=== PATIENT | male | born 1970 | race Caucasian/White ===

== ENCOUNTER 2016-08-23 17:02 | Inpatient (IN) | payer OTHER ==
[~2016-08-23] VITALS: Ht 185.4 cm; Wt 49.3 kg
[~2016-08-23 17:02] MED LIST: CARBAMAZEPINE400 MG PO; GAMUNEX-C10 GM/100 IV; LIBRIUM25 MG PO; MIRTAZAPINE15 MG PO; TEGRETOL-XR,CA400 MG; TYLENOL REGULA325 MG PO; VITAMIN B-12500 MC5 SL; VITAMIN B-6100 MG PO
[2016-08-23 18:24] LABS: HEMATOCRIT 24.3 % (38.0-50.0); MCH 33.7 PG (29.0-34.0); MCHC 36.6 G/DL (30.0-36.0); MEAN PLAT.VOLUME 8.1 uM^3 (9.0-12.4); PLATELET COUNT 515 K/uL (156-360); RBC DIS.WIDTH-CV 16.8 % (11.8-14.6); RBC DIS.WIDTH-SD 53.5 % (39-53); RED BLOOD COUNT 2.64 M/uL (4.00-5.50)
[2016-08-23 18:25] LABS: INTER. NORMALIZED RATIO 0.9; PROTHROMBIN TIME 9.6 (9.2-11.2); PTT 23.8 (25-32); WHITE BLOOD COUNT 1.3 K/uL (4.1-10.2)
[2016-08-23 18:27] LABS: CHLORIDE 84 mEq/L (99-109); POTASSIUM 3.5 mEq/L (3.7-5.4); SODIUM 121 mEq/L (136-147)
[2016-08-23 18:30] LABS: GLUCOSE 178 mg/dL (70-99)
[2016-08-23 18:31] LABS: ANION GAP 15 MEQ/L (2-14)
[2016-08-23 18:32] LABS: TOTAL BILIRUBIN 1.5 mg/dL (0.0-1.0)
[2016-08-23 18:33] LABS: ALKALINE PHOSPHATASE 291 IU/L (3-129); GFR ESTIMATE (CALCULATED) 19 mL/min/
[2016-08-23 18:35] LABS: UREA NITROGEN (BUN) 50 mg/dL (9-23)
[2016-08-23] MEDS ORDERED: LEXAPRO10 MG PO (18:53)
[2016-08-23] MEDS ORDERED: ONE-A-DAY ESSE1 EAC1 PO (18:53)
[2016-08-23] MEDS ORDERED: IRON325 M1 PO (18:54)
[2016-08-23] MEDS ORDERED: AMLODIPINE BESYL5 MG PO (18:54)
[2016-08-23] MEDS ORDERED: METOPROLOL PO (18:54)
[2016-08-23] MEDS ORDERED: VALCYTE450 MG PO (18:54)
[2016-08-23] MEDS ORDERED: KEPPRA500 MG PO (18:54)
[2016-08-23] MEDS ORDERED: PREDNISONE5 MG PO (18:54)
[2016-08-23] MEDS ORDERED: BACTRIM,SEPT1 TABLET PO (18:55)
[2016-08-23] MEDS ORDERED: TACROLIMUS ANHYD1 MG PO (18:55)
[2016-08-23] MEDS ORDERED: ZOFRAN4 MG PO (18:55)
[2016-08-23] MEDS ORDERED: MYCOPHENOLATE250 MG PO (18:56)
[2016-08-23] MEDS ORDERED: MAGNESIUM400 M1 PO (18:56)
[2016-08-23] MEDS ORDERED: PROTONIX40 MG PO (18:56)
[2016-08-23] MEDS ORDERED: LITE COAT ASPI325 M1 PO (18:56)
[2016-08-23 20:25] LABS: ANISOCYTOSIS 2+; PLAT.SUFFICIENCY ADEQUATE; SMUDGE CELLS 0
[2016-08-23 20:45] VITALS: BP 120/65
[2016-08-23 21:32] VITALS: BP 120/65
[2016-08-23 22:38] VITALS: BP 122/55
[2016-08-24 03:03] VITALS: BP 124/71
[2016-08-24 08:01] VITALS: BP 107/62
[2016-08-24 09:59] LABS: ANION GAP 14 MEQ/L (2-14); MAGNESIUM 1.9 mg/dl (1.3-2.7); POTASSIUM 3.1 MEQ/L (3.7-5.4); SAMPLE HEMOLYSIS CHECK 0; SAMPLE ICTERIC CHECK 0; SAMPLE LIPEMIA CHECK 0; UREA NITROGEN (BUN) 38 mg/dL (9-23)
[2016-08-24 10:00] LABS: CHLORIDE 95 MEQ/L (99-109); GFR ESTIMATE (CALCULATED) 31 mL/min/; GLUCOSE 115 mg/dL (70-99); SODIUM 133 MEQ/L (136-147)
[2016-08-24 12:30] VITALS: BP 135/59
[2016-08-24 16:45] LABS: ADD MIUA? NO; BILIRUBIN NEGATIVE; BLOOD NEGATIVE; COLOR YELLOW ((YELLOW)); GLUCOSE (STRIP) 250; KETONES NEGATIVE; LEUKOCYTES NEGATIVE; NITRITE NEGATIVE; PH, URINE 5.5 (5-8); PROTEIN (STRIP) NEGATIVE; SPECIFIC GRAVITY 1.007 (1.000-1.030); UROBILINOGEN 0.2 MG/DL (0.2-1.0)
[2016-08-24 16:47] VITALS: BP 140/71
[2016-08-24 16:48] LABS: PROBE CHECK ND; SPECIMEN PROCESSING CONTROL ND
[2016-08-24 17:11] LABS: INTERNAL CONTROL VALID? YES
[2016-08-24 18:25] LABS: ANION GAP 10 MEQ/L (2-14); CHLORIDE 99 MEQ/L (99-109); GFR ESTIMATE (CALCULATED) 36 mL/min/; SAMPLE HEMOLYSIS CHECK 0; SAMPLE ICTERIC CHECK 0; SAMPLE LIPEMIA CHECK 0; SODIUM 130 MEQ/L (136-147); UREA NITROGEN (BUN) 35 mg/dL (9-23)
[2016-08-24 19:15] VITALS: BP 100/62
[2016-08-24 19:22] LABS: GLUCOSE 181 mg/dL (70-99); POTASSIUM 4.5 MEQ/L (3.7-5.4)
[2016-08-24 22:49] VITALS: BP 100/65
[2016-08-25] VITALS (11 sets, daily range): BP systolic 117–163; BP diastolic 71–84
[2016-08-25 07:17] LABS: ANION GAP 9 MEQ/L (2-14); CHLORIDE 101 MEQ/L (99-109); GFR ESTIMATE (CALCULATED) 43 mL/min/; GLUCOSE 91 mg/dL (70-99); POTASSIUM 3.9 MEQ/L (3.7-5.4); SAMPLE HEMOLYSIS CHECK 0; SAMPLE ICTERIC CHECK 0; SAMPLE LIPEMIA CHECK 0; SODIUM 129 MEQ/L (136-147); UREA NITROGEN (BUN) 29 mg/dL (9-23)
[2016-08-25 09:59] LABS: HEMATOCRIT 19.6 % (38.0-50.0); MCHC 35.2 G/DL (30.0-36.0); MEAN PLAT.VOLUME 8.7 uM^3 (9.0-12.4); PLATELET COUNT 363 K/uL (156-360); RBC DIS.WIDTH-CV 17.8 % (11.8-14.6); RBC DIS.WIDTH-SD 63.5 % (39-53)
[2016-08-25 10:00] LABS: MCV 96.6 FL (86-99); RED BLOOD COUNT 2.03 M/uL (4.00-5.50); WHITE BLOOD COUNT 1.1 K/uL (4.1-10.2)
[2016-08-26 07:07] LABS: ANION GAP 8 MEQ/L (2-14); CHLORIDE 102 MEQ/L (99-109); GFR ESTIMATE (CALCULATED) 49 mL/min/; GLUCOSE 74 mg/dL (70-99); SAMPLE HEMOLYSIS CHECK 0; SAMPLE ICTERIC CHECK 0; SAMPLE LIPEMIA CHECK 0; SODIUM 131 MEQ/L (136-147); UREA NITROGEN (BUN) 20 mg/dL (9-23)
[2016-08-26 07:08] LABS: ALKALINE PHOSPHATASE 206 IU/L (3-129); ANION GAP 9 MEQ/L (2-14); CHLORIDE 102 MEQ/L (99-109); GFR ESTIMATE (CALCULATED) 53 mL/min/; GLUCOSE 75 mg/dL (70-99); POTASSIUM 4.1 MEQ/L (3.7-5.4); SAMPLE HEMOLYSIS CHECK 0; SAMPLE ICTERIC CHECK 0; SAMPLE LIPEMIA CHECK 0; SODIUM 132 MEQ/L (136-147); TOTAL BILIRUBIN 1.3 MG/DL (0.0-1.0); UREA NITROGEN (BUN) 21 mg/dL (9-23)
[2016-08-26 07:47] LABS: HEMATOCRIT 30.3 % (38.0-50.0); MCH 32.4 PG (29.0-34.0); PLATELET COUNT 333 K/uL (156-360); RBC DIS.WIDTH-CV 18.7 % (11.8-14.6); RBC DIS.WIDTH-SD 62.8 % (39-53)
[2016-08-26 07:55] VITALS: BP 128/88
[2016-08-26 07:56] LABS: MCV 92.1 FL (86-99); RED BLOOD COUNT 3.27 M/uL (4.00-5.50); WHITE BLOOD COUNT 1.3 K/uL (4.1-10.2)
[2016-08-26 08:27] LABS: ABS NEUTROPHIL COUNT 0.37; ANISOCYTOSIS OCC; BURR CELLS OCC; EOSINOPHIL (%) 3.1 % (0-5); EOSINOPHIL ABS CT 0.09; IMMATURE GRANULOCYTE (%) 8.7 % (0.0-0.7); IMMATURE GRANULOCYTE COUNT 0.1 K/uL; LYMPHOCYTE COUNT 0.5 K/uL (1.0-2.8); MONOCYTE (%) 9.4 % (3-12); MONOCYTE COUNT 0.1 K/uL (0-0.8); NEUTROPHIL (%) 35.5 % (45-76); NEUTROPHIL COUNT 0.5 K/uL (1.8-6.4); PLAT.SUFFICIENCY ADEQUATE; USER ID CL
[2016-08-26 17:00] VITALS: BP 117/69
[2016-08-26 23:55] VITALS: BP 131/84
[2016-08-27 08:53] LABS: MCH 32.4 PG (29.0-34.0); MCHC 34.8 G/DL (30.0-36.0); MCV 92.6 FL (86-99); MEAN PLAT.VOLUME 8.8 uM^3 (9.0-12.4); PLATELET COUNT 308 K/uL (156-360); RBC DIS.WIDTH-CV 18.6 % (11.8-14.6); RBC DIS.WIDTH-SD 62.8 % (39-53); RED BLOOD COUNT 3.33 M/uL (4.00-5.50)
[2016-08-27 08:54] LABS: WHITE BLOOD COUNT 1.1 K/uL (4.1-10.2)
[2016-08-27 08:55] LABS: DELETE MACHINE DIFF? YES
[2016-08-27 08:58] VITALS: BP 122/77
[2016-08-27 09:05] LABS: ANION GAP 9 MEQ/L (2-14); CHLORIDE 103 MEQ/L (99-109); GFR ESTIMATE (CALCULATED) 53 mL/min/; POTASSIUM 3.9 MEQ/L (3.7-5.4); SAMPLE HEMOLYSIS CHECK 0; SAMPLE ICTERIC CHECK 0; SAMPLE LIPEMIA CHECK 0; SODIUM 130 MEQ/L (136-147); UREA NITROGEN (BUN) 17 mg/dL (9-23)
[2016-08-27 09:06] LABS: GLUCOSE 97 mg/dL (70-99)
[2016-08-27 09:13] LABS: ABS NEUTROPHIL COUNT 0.47; ANISOCYTOSIS 1+; EOSINOPHIL (%) 3.5 % (0-5); EOSINOPHIL ABS CT 0.02; IMMATURE GRANULOCYTE (%) 9.6 % (0.0-0.7); IMMATURE GRANULOCYTE COUNT 0.1 K/uL; LYMPHOCYTE COUNT 0.5 K/uL (1.0-2.8); MONOCYTE (%) 6.1 % (3-12); MONOCYTE COUNT 0.1 K/uL (0-0.8); NEUTROPHIL COUNT 0.4 K/uL (1.8-6.4); OVALOCYTES OCC; PLAT.SUFFICIENCY ADEQUATE; POLYCHROMASIA OCC; USER ID SDF
[2016-08-27 17:27] VITALS: BP 114/65
[2016-08-27 23:17] VITALS: BP 131/81
[2016-08-28 07:20] LABS: ALKALINE PHOSPHATASE 163 IU/L (3-129); ANION GAP 8 MEQ/L (2-14); CHLORIDE 104 MEQ/L (99-109); GFR ESTIMATE (CALCULATED) 53 mL/min/; GLUCOSE 90 mg/dL (70-99); SAMPLE HEMOLYSIS CHECK 0; SAMPLE ICTERIC CHECK 0; SAMPLE LIPEMIA CHECK 0; SODIUM 131 MEQ/L (136-147); TOTAL BILIRUBIN 1.2 MG/DL (0.0-1.0); UREA NITROGEN (BUN) 15 mg/dL (9-23)
[2016-08-28 07:21] LABS: POTASSIUM 4.9 MEQ/L (3.7-5.4)
[2016-08-28 07:49] VITALS: BP 135/78
[2016-08-28 07:50] LABS: EOSINOPHIL (%) 1.9 % (0-5); HEMATOCRIT 29.9 % (38.0-50.0); LYMPHOCYTE COUNT 0.5 K/uL (1.0-2.8); MCH 32.2 PG (29.0-34.0); MCHC 34.4 G/DL (30.0-36.0); MCV 93.4 FL (86-99); MEAN PLAT.VOLUME 8.9 uM^3 (9.0-12.4); MONOCYTE (%) 8.6 % (3-12); MONOCYTE COUNT 0.1 K/uL (0-0.8); NEUTROPHIL (%) 39.9 % (45-76); NEUTROPHIL COUNT 0.4 K/uL (1.8-6.4); PLATELET COUNT 307 K/uL (156-360); RBC DIS.WIDTH-CV 18.3 % (11.8-14.6)
[2016-08-28 07:53] LABS: WHITE BLOOD COUNT 1.1 K/uL (4.1-10.2)
[2016-08-28 08:43] LABS: HEMATOLOGY COMMENT 1 SMEAR COMPATIBLE; USER ID STC
[2016-08-28] MEDS ORDERED: VALGANCICLOVIR450 MG PO (12:07)
[2016-08-28] MEDS ORDERED: AZITHROMYCIN500 M1 PO (12:07)
[2016-08-28] MEDS ORDERED: ALINIA500 MG PO (12:07)
[2016-08-28 15:11] VITALS: BP 138/81
[2016-08-28 23:04] VITALS: BP 112/72
[2016-08-29 08:27] VITALS: BP 114/74
[2016-08-29 10:02] LABS: ANION GAP 11 MEQ/L (2-14); CHLORIDE 104 MEQ/L (99-109); GFR ESTIMATE (CALCULATED) 58 mL/min/; GLUCOSE 90 mg/dL (70-99); SAMPLE HEMOLYSIS CHECK 0; SAMPLE ICTERIC CHECK 0; SAMPLE LIPEMIA CHECK 0; SODIUM 132 MEQ/L (136-147); UREA NITROGEN (BUN) 11 mg/dL (9-23)
[2016-08-29 10:20] LABS: POTASSIUM 3.6 MEQ/L (3.7-5.4)
[2016-08-29] MEDS ORDERED: VALGANCICLOVIR450 MG PO (13:00)
[2016-08-29] MEDS ORDERED: AZITHROMYCIN500 M1 PO (13:00)
== END 2016-08-29 14:26 | disposition home health service (06) | DRG 683 ==
LOC: EME 17:02 → EDOF 20:00 → 5EAST 20:00
PROVIDERS: Emergency Medicine; Family Medicine; Internal Medicine; Internal Medicine Gastroenterology
PROC: 30233N1 Transfusion of Nonautologous Red Blood Cells into Peripheral Vein, Percutaneous Approach (ICD-10-PCS; principal; 2016-08-25)
DX: N17.9 Acute kidney failure, unspecified (principal); A07.2 Cryptosporidiosis; E87.1 Hypo-osmolality and hyponatremia; Z94.4 Liver transplant status; G61.81 Chronic inflammatory demyelinating polyneuritis; E86.0 Dehydration; D70.9 Neutropenia, unspecified; E87.6 Hypokalemia; R19.7 Diarrhea, unspecified; D64.9 Anemia, unspecified; G40.909 Epilepsy, unspecified, not intractable, without status epilepticus; F41.9 Anxiety disorder, unspecified; Z88.5 Allergy status to narcotic agent; Z79.82 Long term (current) use of aspirin
CPT/HCPCS: 76770; 80048; 80048 91; 80053; 80069; 80197 90; 81003; 82436; 83630; 83735; 83935; 84100; 84133; 84300; 84540; 85007; 85025; 85027; 85610; 85730; 86850; 86900; 86901; 86920; 87177; 87206; 87207 90; 87329; 87493; 87497 90; 87506; 99281; 99285; J3480; J7030; J7120; J7507; J7512; J7517; P9016

== ENCOUNTER 2016-11-01 13:15 | Inpatient (IN) | payer OTHER ==
[~2016-11-01] VITALS: Ht 188 cm; Wt 48.9 kg
[~2016-11-01 13:15] MED LIST changes: +ALINIA500 MG PO; +AMLODIPINE BESYL5 MG PO; +AZITHROMYCIN500 M1 PO; +BACTRIM,SEPT1 TABLET PO; +IRON325 M1 PO; +KEPPRA500 MG PO; +LEXAPRO10 MG PO; +LITE COAT ASPI325 M1 PO; +MAGNESIUM400 M1 PO; +METOPROLOL PO; +MYCOPHENOLATE250 MG PO; +ONE-A-DAY ESSE1 EAC1 PO; +PREDNISONE5 MG PO; +PROTONIX40 MG PO; +TACROLIMUS ANHYD1 MG PO; +VALCYTE450 MG PO; +VALGANCICLOVIR450 MG PO; +ZOFRAN4 MG PO
[2016-11-01] MEDS ORDERED: SLOW-MAG,MAG DE64 MG PO (18:58)
[2016-11-01] MEDS ORDERED: TACROLIMUS ANHYD1 MG PO ×2 (19:00→19:01)
[2016-11-01] MEDS ORDERED: CELLCEPT250 MG PO (19:02)
[2016-11-01] MEDS ORDERED: FLUCONAZOLE100 MG PO (19:04)
[2016-11-01] MEDS ORDERED: CHEWABLE-VITE1 EACH PO (19:05)
[2016-11-02 00:14] VITALS: BP 172/80
[2016-11-02 07:01] LABS: MCHC 32.9 G/DL (30.0-36.0); MCV 97.2 FL (86-99); MEAN PLAT.VOLUME 9.2 uM^3 (9.0-12.4); PLATELET COUNT 308 K/uL (156-360); RBC DIS.WIDTH-SD 53.6 % (39-53)
[2016-11-02 07:02] LABS: ANION GAP 10 MEQ/L (2-14); CHLORIDE 109 MEQ/L (99-109); POTASSIUM 3.2 MEQ/L (3.7-5.4); SAMPLE HEMOLYSIS CHECK 0; SAMPLE ICTERIC CHECK 0; SAMPLE LIPEMIA CHECK 0; SODIUM 135 MEQ/L (136-147); UREA NITROGEN (BUN) 18 mg/dL (9-23)
[2016-11-02 07:03] LABS: GFR ESTIMATE (CALCULATED) 25 mL/min/; GLUCOSE 92 mg/dL (70-99)
[2016-11-02 07:07] LABS: RED BLOOD COUNT 2.47 M/uL (4.00-5.50); WHITE BLOOD COUNT 6.9 K/uL (4.1-10.2)
[2016-11-02 07:27] VITALS: BP 165/77
[2016-11-02 09:11] LABS: ABS NEUTROPHIL COUNT 3.7; ANISOCYTOSIS 1+; BAND NEUTROPHILS 16.2 % (0-8.0); BURR CELLS 2+; EOSINOPHIL ABS CT 1.2; EOSINOPHILS 17.1 % (0-5.0); INSTRUMENT ABS NEUTROPHIL CT 3.6 K/uL; LYMPHOCYTES 14.4 % (15.0-45.0); MACROCYTES 1+; METAMYELOCYTES 4.5 %; MYELOCYTES 3.6 %; PLAT.SUFFICIENCY ADEQUATE; POIKILOCYTOSIS 2+
[2016-11-02 16:15] VITALS: BP 117/67
[2016-11-02 23:09] VITALS: BP 133/83
[2016-11-03] VITALS (7 sets, daily range): BP systolic 116–170; BP diastolic 72–88
[2016-11-03 06:31] LABS: HEMATOCRIT 21.7 % (38.0-50.0); MCH 31.7 PG (29.0-34.0); MCHC 32.3 G/DL (30.0-36.0); MCV 98.2 FL (86-99); MEAN PLAT.VOLUME 9.2 uM^3 (9.0-12.4); PLATELET COUNT 270 K/uL (156-360); RBC DIS.WIDTH-CV 15.3 % (11.8-14.6); RBC DIS.WIDTH-SD 55.8 % (39-53); RED BLOOD COUNT 2.21 M/uL (4.00-5.50); WHITE BLOOD COUNT 6.3 K/uL (4.1-10.2)
[2016-11-03 07:37] LABS: ANION GAP 10 MEQ/L (2-14); CHLORIDE 112 MEQ/L (99-109); GLUCOSE 95 mg/dL (70-99); POTASSIUM 2.8 MEQ/L (3.7-5.4); SAMPLE HEMOLYSIS CHECK 0; SAMPLE ICTERIC CHECK 0; SAMPLE LIPEMIA CHECK 0; SODIUM 135 MEQ/L (136-147); UREA NITROGEN (BUN) 11 mg/dL (9-23)
[2016-11-03 07:38] LABS: GFR ESTIMATE (CALCULATED) 31 mL/min/
[2016-11-03 08:07] LABS: ABS NEUTROPHIL COUNT 3.3; ATYPICAL LYMPHOCYTE 2.7 %; BAND NEUTROPHILS 8.2 % (0-8.0); BASOPHILS 1.8 %; BURR CELLS 1+; EOSINOPHIL ABS CT 1.5; EOSINOPHILS 24.6 % (0-5.0); INSTRUMENT ABS NEUTROPHIL CT 3.1 K/uL; LYMPHOCYTES 4.6 % (15.0-45.0); METAMYELOCYTES 2.7 %; MYELOCYTES 0.9 %; PLAT.SUFFICIENCY ADEQUATE; POIKILOCYTOSIS 2+; SEG.NEUTROPHILS 44.5 % (46.0-76.0); SMUDGE CELLS 0.9
[2016-11-03 18:12] LABS: ANION GAP 10 MEQ/L (2-14); CHLORIDE 112 MEQ/L (99-109); SAMPLE HEMOLYSIS CHECK 0; SAMPLE ICTERIC CHECK 0; SAMPLE LIPEMIA CHECK 0; SODIUM 139 MEQ/L (136-147)
[2016-11-03 18:56] LABS: GFR ESTIMATE (CALCULATED) 34 mL/min/; UREA NITROGEN (BUN) 9 mg/dL (9-23)
[2016-11-03 18:57] LABS: GLUCOSE 120 mg/dL (70-99)
[2016-11-04 00:46] VITALS: BP 126/68
[2016-11-04 01:13] VITALS: BP 164/79
[2016-11-04 06:19] LABS: CARBON DIOXIDE (BICARBONATE) 20.2 MEQ/L (20-31)
[2016-11-04 06:21] LABS: HEMATOCRIT 27.5 % (38.0-50.0); MCH 30.6 PG (29.0-34.0); MCHC 33.8 G/DL (30.0-36.0); RBC DIS.WIDTH-CV 16.7 % (11.8-14.6); RBC DIS.WIDTH-SD 55.7 % (39-53); WHITE BLOOD COUNT 5.8 K/uL (4.1-10.2)
[2016-11-04 06:36] LABS: ANION GAP 10 MEQ/L (2-14); CHLORIDE 107 MEQ/L (99-109); GFR ESTIMATE (CALCULATED) 33 mL/min/; GLUCOSE 97 mg/dL (70-99); SAMPLE HEMOLYSIS CHECK 0; SAMPLE ICTERIC CHECK 0; SAMPLE LIPEMIA CHECK 0; SODIUM 136 MEQ/L (136-147); UREA NITROGEN (BUN) 8 mg/dL (9-23)
[2016-11-04 06:38] LABS: MCV 90.5 FL (86-99); POTASSIUM 2.4 MEQ/L (3.7-5.4); RED BLOOD COUNT 3.04 M/uL (4.00-5.50)
[2016-11-04 08:00] LABS: ANISOCYTOSIS 1+; EOSINOPHIL ABS CT 1.2; INSTRUMENT ABS NEUTROPHIL CT 2.7 K/uL; MACROCYTES 1+; OVALOCYTES 1+; PLAT.SUFFICIENCY ADEQUATE; PLATELET COUNT 224 K/uL (156-360)
[2016-11-04 08:50] VITALS: BP 116/66
[2016-11-04 17:09] LABS: ANION GAP 9 MEQ/L (2-14); CHLORIDE 106 MEQ/L (99-109); GFR ESTIMATE (CALCULATED) 41 mL/min/; GLUCOSE 132 mg/dL (70-99); SAMPLE HEMOLYSIS CHECK 0; SAMPLE ICTERIC CHECK 0; SAMPLE LIPEMIA CHECK 0; SODIUM 135 MEQ/L (136-147); UREA NITROGEN (BUN) 7 mg/dL (9-23)
[2016-11-04 17:11] LABS: MAGNESIUM 1.6 mg/dl (1.3-2.7)
[2016-11-04] MEDS ORDERED: NABI650T PO (19:11)
[2016-11-04] MEDS ORDERED: K-DUR20 MEQ PO (19:12)
[2016-11-07 15:37] LABS: Cytomegalovirus IgG Antibody+ <0.60 U/mL (<0.60); Cytomegalovirus IgM Antibody+ <30.00 AU/mL (<30.00)
== END 2016-11-04 20:10 | disposition home or self-care (01) | DRG 683 ==
LOC: EME 13:15 → EDOF 18:45 → 5EAST 18:45
PROVIDERS: Family Medicine; Internal Medicine; Internal Medicine Nephrology
PROC: 30233N1 Transfusion of Nonautologous Red Blood Cells into Peripheral Vein, Percutaneous Approach (ICD-10-PCS; principal; 2016-11-03)
DX: N17.9 Acute kidney failure, unspecified (principal); E87.2 Acidosis; Z94.4 Liver transplant status; E86.0 Dehydration; E87.6 Hypokalemia; R19.7 Diarrhea, unspecified; G40.909 Epilepsy, unspecified, not intractable, without status epilepticus; E11.22 Type 2 diabetes mellitus with diabetic chronic kidney disease; G62.9 Polyneuropathy, unspecified; D64.9 Anemia, unspecified; I12.9 Hypertensive chronic kidney disease with stage 1 through stage 4 chronic kidney disease, or unspecified chronic kidney disease; N18.3 Chronic kidney disease, stage 3 (moderate); F41.9 Anxiety disorder, unspecified
CPT/HCPCS: 36415; 74176; 80048 91; 80053; 80069; 80197 90; 82803; 83735; 84100; 85025; 85025 91; 86644 90; 86645 90; 86850; 86900; 86901; 86920; 87206; 87493; 99281; 99285; J3475; J7030; J7050; J7070; J7120; J7507; J7512; J7517; P9016

== ENCOUNTER 2017-01-20 10:40 | Emergency (ER) | payer OTHER ==
[~2017-01-20] VITALS: Ht 185.4 cm; Wt 46.9 kg
[~2017-01-20 10:40] MED LIST changes: +CELLCEPT250 MG PO; +CHEWABLE-VITE1 EACH PO; +FLUCONAZOLE100 MG PO; +K-DUR20 MEQ PO; +NABI650T PO; +SLOW-MAG,MAG DE64 MG PO
[2017-01-20 11:52] LABS: HEMATOCRIT 35.5 % (38.0-50.0); MCH 30.8 PG (29.0-34.0); MCHC 32.7 G/DL (30.0-36.0); MEAN PLAT.VOLUME 9.4 uM^3 (9.0-12.4); PLATELET COUNT 502 K/uL (156-360); RBC DIS.WIDTH-CV 13.4 % (11.8-14.6); RBC DIS.WIDTH-SD 46.6 % (39-53); RED BLOOD COUNT 3.77 M/uL (4.00-5.50); WHITE BLOOD COUNT 12.5 K/uL (4.1-10.2)
[2017-01-20 11:55] LABS: MCV 94.2 FL (86-99)
[2017-01-20 12:01] LABS: CHLORIDE 102 mEq/L (99-109); POTASSIUM 3.2 mEq/L (3.7-5.4)
[2017-01-20 12:03] LABS: GLUCOSE 130 mg/dL (70-99)
[2017-01-20 12:04] LABS: ANION GAP 10 MEQ/L (2-14)
[2017-01-20 12:05] LABS: SODIUM 132 mEq/L (136-147); TOTAL BILIRUBIN 0.6 mg/dL (0.0-1.0)
[2017-01-20 12:06] LABS: ALKALINE PHOSPHATASE 882 IU/L (3-129)
[2017-01-20 12:07] LABS: GFR ESTIMATE (CALCULATED) 28 mL/min/
[2017-01-20 12:08] LABS: UREA NITROGEN (BUN) 22 mg/dL (9-23)
[2017-01-20] MEDS ORDERED: PROGRAF1 MG PO (13:20)
[2017-01-20] MEDS ORDERED: VALCYTE450 MG PO (13:21)
[2017-01-20] MEDS ORDERED: NEURONTIN300 MG PO (13:22)
[2017-01-20 13:47] LABS: INTER. NORMALIZED RATIO 1.1; PROTHROMBIN TIME 10.7 (9.2-11.2); PTT 30.1 (25-32)
[2017-01-20 13:57] LABS: LIPASE 2 U/L (1.0-51.0)
[2017-01-20 14:38] LABS: ADD MIUA? NO; BILIRUBIN NEGATIVE; BLOOD NEGATIVE; COLOR YELLOW ((YELLOW)); GLUCOSE (STRIP) NEGATIVE; KETONES NEGATIVE; LEUKOCYTES NEGATIVE; NITRITE NEGATIVE; PROTEIN (STRIP) 30; SPECIFIC GRAVITY 1.009 (1.000-1.030); UCUL ADDED? NO; UROBILINOGEN 0.2 MG/DL (0.2-1.0)
[2017-01-20 17:19] VITALS: BP 147/92
== END 2017-01-20 17:44 | disposition home or self-care (01) ==
LOC: EME 10:40
PROVIDERS: Emergency Medicine
DX: E86.0 Dehydration (principal); R19.7 Diarrhea, unspecified; Z94.4 Liver transplant status; I10 Essential (primary) hypertension; R56.9 Unspecified convulsions
CPT/HCPCS: 76705; 80053; 80197 90; 81003; 83690; 85027; 85610; 85730; 93976; 99281; 99284; J7030